=== PATIENT | male | born 1960 | race Caucasian/White ===

== ENCOUNTER 2020-02-03 05:57 | Emergency (ER) | payer MEDICAID ==
[~2020-02-03] VITALS: Ht 185.4 cm; Wt 88.5 kg
[2020-02-03 06:00] VITALS: BP_SYST 138
[2020-02-03] MEDS ORDERED: IPRATROPIUM/ALBUTEROL SULFATE 3 ML AMPUL.NEB (DUONEB) INH ONE ×2 (06:15→06:30)
[2020-02-03] MEDS ORDERED: IPRATROPIUM/ALBUTEROL SULFATE 3 ML AMPUL.NEB (DUONEB) ONE (06:28)
[2020-02-03] MEDS ORDERED: methylPREDNISolone SOD SUCC/PF 62.5 MG/ML VIAL IM ONE (06:30)
[2020-02-03] MEDS ORDERED: methylPREDNISolone SOD SUCC/PF 62.5 MG/ML VIAL ONE (07:13)
[2020-02-03 07:30] VITALS: BP_SYST 124
== END 2020-02-03 07:32 | disposition home or self-care (01) ==
LOC: SED 05:57
DX: J45.901 Unspecified asthma with (acute) exacerbation (principal)
CPT/HCPCS: 94640; 71045; 96372; 99284; J2930

== ENCOUNTER 2021-01-10 00:29 | Emergency (ER) | payer MEDICAID ==
[~2021-01-10] VITALS: Ht 185.4 cm; Wt 90.7 kg
[2021-01-10 00:40] VITALS: BP_SYST 118
[2021-01-10] MEDS ORDERED: KETOROLAC TROMETHAMINE 60 MG/2 ML VIAL IM ONE (03:00)
[2021-01-10] MEDS ORDERED: IBUP-1970 PO (03:21)
[2021-01-10 03:39] VITALS: BP_SYST 123
== END 2021-01-10 03:38 | disposition home or self-care (01) ==
LOC: SED 00:29
DX: S83.92XA Sprain of unspecified site of left knee, initial encounter (principal); S80.02XA Contusion of left knee, initial encounter; J45.909 Unspecified asthma, uncomplicated; Z79.899 Other long term (current) drug therapy; W01.0XXA Fall on same level from slipping, tripping and stumbling without subsequent striking against object, initial encounter; Y93.89 Activity, other specified; Y92.89 Other specified places as the place of occurrence of the external cause; Y99.8 Other external cause status
CPT/HCPCS: 29505; 73564; 96372; 99283; J1885